=== PATIENT | male | born 2000 | race Hispanic/Latino ===

== ENCOUNTER → 2025-03-11 | Day surgery (SDC) | payer OTHER ==
[~2025-03-11] MED LIST: ACETAMINOPHEN 1000 MG/100 ML 100 ML IV ONE; ASHWAGANDHA62.5 MG; CEFPROZIL250 MG PO; CREATINE MONO; DEXAMETHASONE SOD PHOS INJ 4 MG/ML SDV ONE; FENTANYL CITRATE/PF 100MCG/2 ML INJ ONE; LIDOCAINE HCL 2% LOCAL INJ 5 ML SDV VIAL INJ ONE; ONDANSETRON HCL INJ 2MG/ML 2ML 2 MG/ML VIAL ONE; PREDNISONE20 MG PO; PROPOFOL IV EMULSION 10 MG/ML 20 ML VIAL ONE; ROCURONIUM BROMIDE 1 ML IV ONE; SEVOFLURANE INHAL SOLN 250 ML PEN BTL ONE; SUCCINYLCHOLINE CHLORIDE 20 MG/ML 10ML VIAL ONE; SUGAMMADEX SODIUM 200 MG/2 ML VIAL IV ONE; VITAMIN E1000 UNI1; [UNRECOGNIZED DRUG - OTHER]; [UNRECOGNIZED DRUG - REMARK]
[2025-03-11] MEDS: LACTATED RINGER'S 1,000 ML ONE (05:57)
[2025-03-11 08:31] VITALS: TEMP 97
[2025-03-11 10:00] VITALS: BP 122/87; PULSE 67; RESP 16; O2SAT 98
== END | disposition home or self-care (01) ==
LOC: OR 05:30
PROVIDERS: ATTEND Otolaryngology Otolaryngology/Facial Plastic Surgery
DX: J35.01 Chronic tonsillitis (principal)
CPT/HCPCS: 42826; 88304; J0131; J0330; J1100; J2003; J2405; J2704; J3010; J7121